=== PATIENT | male | born 1975 | race Caucasian/White ===

== ENCOUNTER 2023-06-28 02:50 | Outpatient (CLI) | payer BC, SELFPAY ==
[2023-06-28 08:40] LABS: Absolute Basophil Count 0.06 10^3/uL (0.0-0.2); Absolute Eosinophil Count 0.34 10^3/uL (0.0-0.7); Absolute Lymphocyte Count 0.43 10^3/uL (1.2-3.4); Absolute Monocyte Count 0.74 10^3/uL (0.1-0.8); Basophils % 0.8; Eosinophils % 4.7; HCT 32.3 % (40.0-50.0); HGB 10.3 g/dL (13.5-17.5); Immature Grans % 2.8; MCH 28.4 pg (27.0-33.0); MCHC 31.9 % (32.0-36.0); MCV 89 fL (80-95); MPV 8.4 fL (8.0-11.0); Monocytes % 10.3; Neutrophils % 75.4; Platelet Count 323 10^3/uL (130-400); RBC 3.63 10^6/uL (4.36-5.78); RDW 19.4 % (11.8-14.1); RDW-SD 63.7 fL; WBC 7.17 10^3/uL (4.4-10.8)
[2023-06-28 09:05] LABS: ALT 39 U/L (16-63); AST 27 U/L (15-37); Albumin 2.9 g/dL (3.4-5.0); Alkaline Phosphatase 173 U/L (46-116); Anion Gap 9.2 mmol/L (3-11); BUN 19 mg/dL (7-18); Bilirubin, Total 0.4 mg/dL (0.2-1.0); CO2 29.8 mmol/L (21.0-32.0); CREATININE 0.9 mg/dL (0.70-1.30); Calcium 9.7 mg/dL (8.5-10.1); Chloride 103 mmol/L (98-107); FREE T4 1.15 ng/dL (0.76-1.46); Glucose 87 mg/dL (74-106); Magnesium 1.9 mg/dL (1.8-2.4); Potassium 3.9 mmol/L (3.5-5.1); Sodium 142 mmol/L (136-145); TSH 2.56 uIU/mL (0.36-3.74); Total Protein 7.1 g/dL (6.4-8.2)
== END 2023-06-28 02:51 | disposition home or self-care (01) ==
PROVIDERS: Visit Provider Internal Medicine Medical Oncology
DX: C34.11 Malignant neoplasm of upper lobe, right bronchus or lung (principal); C79.51 Secondary malignant neoplasm of bone
CPT/HCPCS: 36415; 80053; 83735; 84439; 84443; 85025

== ENCOUNTER 2023-07-24 03:29 | Outpatient (CLI) | payer BC, SELFPAY ==
[2023-07-24 07:56] LABS: Abs Immature Grans 0.43 10^3/uL (0.0-0.06); Absolute Eosinophil Count 0.17 10^3/uL (0.0-0.7); Absolute Lymphocyte Count 0.56 10^3/uL (1.2-3.4); Absolute Monocyte Count 1.48 10^3/uL (0.1-0.8); Absolute Neutrophil Count 9.92 10^3/uL (1.2-6.7); Basophils % 1.3; Eosinophils % 1.3; HGB 9.9 g/dL (13.5-17.5); Immature Grans % 3.4; Lymphocytes % 4.4; MCH 27.8 pg (27.0-33.0); MCHC 31.9 % (32.0-36.0); MCV 87 fL (80-95); MPV 8.2 fL (8.0-11.0); Monocytes % 11.6; Platelet Count 557 10^3/uL (130-400); RBC 3.56 10^6/uL (4.36-5.78); RDW 18.6 % (11.8-14.1); RDW-SD 59.7 fL; WBC 12.72 10^3/uL (4.4-10.8)
[2023-07-24 08:03] LABS: Absolute Basophil Count 0.17 10^3/uL (0.0-0.2)
[2023-07-24 08:14] LABS: ALT 18 U/L (16-63); AST 17 U/L (15-37); Albumin 2.3 g/dL (3.4-5.0); Alkaline Phosphatase 142 U/L (46-116); Anion Gap 9.2 mmol/L (3-11); BUN 6 mg/dL (7-18); Bilirubin, Total 0.4 mg/dL (0.2-1.0); CO2 29.8 mmol/L (21.0-32.0); CREATININE 0.9 mg/dL (0.70-1.30); Calcium 9.5 mg/dL (8.5-10.1); Chloride 100 mmol/L (98-107); FREE T4 1.27 ng/dL (0.76-1.46); Glucose 115 mg/dL (74-106); Magnesium 1.7 mg/dL (1.8-2.4); Potassium 3.6 mmol/L (3.5-5.1); Sodium 139 mmol/L (136-145); TSH 2.15 uIU/mL (0.36-3.74); Total Protein 7.1 g/dL (6.4-8.2)
== END 2023-07-24 03:30 | disposition home or self-care (01) ==
LOC: LBO 03:31
PROVIDERS: Visit Provider Internal Medicine Medical Oncology
DX: C34.11 Malignant neoplasm of upper lobe, right bronchus or lung (principal); C79.51 Secondary malignant neoplasm of bone; Z79.899 Other long term (current) drug therapy
CPT/HCPCS: 36415; 80053; 83735; 84439; 84443; 85025

== ENCOUNTER 2023-08-14 04:57 | Outpatient (CLI) | payer BC, SELFPAY ==
[2023-08-14 10:03] LABS: Abs Immature Grans 0.04 10^3/uL (0.0-0.06); Absolute Basophil Count 0.11 10^3/uL (0.0-0.2); Absolute Eosinophil Count 0.26 10^3/uL (0.0-0.7); Absolute Lymphocyte Count 0.57 10^3/uL (1.2-3.4); Absolute Monocyte Count 0.96 10^3/uL (0.1-0.8); Absolute Neutrophil Count 1.87 10^3/uL (1.2-6.7); Basophils % 2.9; Eosinophils % 6.8; HCT 31.1 % (40.0-50.0); HGB 9.9 g/dL (13.5-17.5); MCH 28.1 pg (27.0-33.0); MCHC 31.8 % (32.0-36.0); MCV 88 fL (80-95); Monocytes % 25.2; Neutrophils % 49.1; Platelet Count 626 10^3/uL (130-400); RBC 3.52 10^6/uL (4.36-5.78); RDW 18.3 % (11.8-14.1); RDW-SD 58.9 fL; WBC 3.81 10^3/uL (4.4-10.8)
[2023-08-14 10:29] LABS: ALT 22 U/L (16-63); AST 23 U/L (15-37); Albumin 2.8 g/dL (3.4-5.0); Alkaline Phosphatase 213 U/L (46-116); Anion Gap 6.5 mmol/L (3-11); BUN 7 mg/dL (7-18); Bilirubin, Total 0.2 mg/dL (0.2-1.0); CO2 31.5 mmol/L (21.0-32.0); Calcium 9.2 mg/dL (8.5-10.1); Chloride 101 mmol/L (98-107); Estimated GFR 92.26 (mL/min/1.73m2); FREE T4 0.96 ng/dL (0.76-1.46); Glucose 94 mg/dL (74-106); Magnesium 2.1 mg/dL (1.8-2.4); Potassium 3.8 mmol/L (3.5-5.1); Sodium 139 mmol/L (136-145); Total Protein 7.5 g/dL (6.4-8.2)
== END 2023-08-14 04:58 | disposition home or self-care (01) ==
LOC: LBO 04:57
PROVIDERS: Visit Provider Internal Medicine Medical Oncology
DX: C34.11 Malignant neoplasm of upper lobe, right bronchus or lung (principal); C79.51 Secondary malignant neoplasm of bone; Z79.899 Other long term (current) drug therapy
CPT/HCPCS: 36415; 80053; 83735; 84439; 84443; 85025

== ENCOUNTER 2023-09-11 05:40 | Outpatient (CLI) | payer BC, SELFPAY ==
[2023-09-11 10:02] LABS: Abs Immature Grans 0.03 10^3/uL (0.0-0.06); Absolute Basophil Count 0.15 10^3/uL (0.0-0.2); Absolute Eosinophil Count 0.59 10^3/uL (0.0-0.7); Absolute Lymphocyte Count 0.62 10^3/uL (1.2-3.4); Absolute Monocyte Count 0.67 10^3/uL (0.1-0.8); Absolute Neutrophil Count 5.63 10^3/uL (1.2-6.7); Eosinophils % 7.7; HCT 31.9 % (40.0-50.0); HGB 10.3 g/dL (13.5-17.5); Immature Grans % 0.4; Lymphocytes % 8.1; MCH 29.2 pg (27.0-33.0); MCHC 32.3 % (32.0-36.0); MCV 90 fL (80-95); MPV 8.8 fL (8.0-11.0); Monocytes % 8.7; Neutrophils % 73.1; Platelet Count 398 10^3/uL (130-400); RBC 3.53 10^6/uL (4.36-5.78); RDW 16.6 % (11.8-14.1); RDW-SD 54.9 fL; WBC 7.69 10^3/uL (4.4-10.8)
[2023-09-11 10:27] LABS: ALT 23 U/L (16-63); AST 30 U/L (15-37); Albumin 3.2 g/dL (3.4-5.0); Alkaline Phosphatase 169 U/L (46-116); Anion Gap 9.7 mmol/L (3-11); BUN 13 mg/dL (7-18); Bilirubin, Total 0.4 mg/dL (0.2-1.0); CO2 27.3 mmol/L (21.0-32.0); CREATININE 0.8 mg/dL (0.70-1.30); Calcium 8.7 mg/dL (8.5-10.1); Chloride 105 mmol/L (98-107); Estimated GFR 108.49 (mL/min/1.73m2); FREE T4 0.93 ng/dL (0.76-1.46); Glucose 104 mg/dL (74-106); Potassium 4.2 mmol/L (3.5-5.1); Sodium 142 mmol/L (136-145); TSH 1.74 uIU/Ml (0.36-3.74); Total Protein 7.1 g/dL (6.4-8.2)
== END 2023-09-11 05:41 | disposition home or self-care (01) ==
LOC: LBO 05:40
PROVIDERS: Visit Provider Internal Medicine Medical Oncology
DX: C34.11 Malignant neoplasm of upper lobe, right bronchus or lung (principal); C79.51 Secondary malignant neoplasm of bone
CPT/HCPCS: 36415; 80053; 83735; 84439; 84443; 85025

== ENCOUNTER 2023-10-02 05:07 | Outpatient (CLI) | payer BC, SELFPAY ==
[2023-10-02 10:07] LABS: Abs Immature Grans 0.02 10^3/uL (0.0-0.06); Absolute Basophil Count 0.08 10^3/uL (0.0-0.2); Absolute Eosinophil Count 0.36 10^3/uL (0.0-0.7); Absolute Lymphocyte Count 0.87 10^3/uL (1.2-3.4); Absolute Monocyte Count 0.48 10^3/uL (0.1-0.8); Absolute Neutrophil Count 4.77 10^3/uL (1.2-6.7); Basophils % 1.2; Eosinophils % 5.5; HCT 35.7 % (40.0-50.0); HGB 11.4 g/dL (13.5-17.5); Immature Grans % 0.3; Lymphocytes % 13.2; MCH 29.4 pg (27.0-33.0); MCHC 31.9 % (32.0-36.0); MCV 92 fL (80-95); MPV 9.1 fL (8.0-11.0); Monocytes % 7.3; Neutrophils % 72.5; Platelet Count 251 10^3/uL (130-400); RBC 3.88 10^6/uL (4.36-5.78); RDW-SD 50.4 fL; WBC 6.58 10^3/uL (4.4-10.8)
[2023-10-02 10:36] LABS: ALT 22 U/L (16-63); AST 26 U/L (15-37); Albumin 3.5 g/dL (3.4-5.0); Alkaline Phosphatase 175 U/L (46-116); Anion Gap 6.5 mmol/L (3-11); BUN 15 mg/dL (7-18); Bilirubin, Total 0.3 mg/dL (0.2-1.0); CO2 29.5 mmol/L (21.0-32.0); CREATININE 0.7 mg/dL (0.70-1.30); Calcium 8.8 mg/dL (8.5-10.1); Chloride 107 mmol/L (98-107); Estimated GFR 112.95 (mL/min/1.73m2); FREE T4 1.04 ng/dL (0.76-1.46); Glucose 104 mg/dL (74-106); Magnesium 1.9 mg/dL (1.8-2.4); Potassium 4.4 mmol/L (3.5-5.1); Sodium 143 mmol/L (136-145); TSH 3.24 uIU/Ml (0.36-3.74); Total Protein 7.3 g/dL (6.4-8.2)
== END 2023-10-02 05:08 | disposition home or self-care (01) ==
LOC: LBO 05:07
PROVIDERS: Visit Provider Internal Medicine Medical Oncology
DX: C34.11 Malignant neoplasm of upper lobe, right bronchus or lung (principal); C79.51 Secondary malignant neoplasm of bone
CPT/HCPCS: 36415; 80053; 83735; 84439; 84443; 85025

== ENCOUNTER 2023-10-23 04:54 | Outpatient (CLI) | payer BC, SELFPAY ==
[2023-10-23 11:13] LABS: Abs Immature Grans 0.02 10^3/uL (0.0-0.06); Absolute Eosinophil Count 0.47 10^3/uL (0.0-0.7); Absolute Lymphocyte Count 0.73 10^3/uL (1.2-3.4); Absolute Monocyte Count 0.41 10^3/uL (0.1-0.8); Absolute Neutrophil Count 4.08 10^3/uL (1.2-6.7); Basophils % 1.7 %; Eosinophils % 8.1 %; HCT 34.8 % (40.0-50.0); Immature Grans % 0.3 %; Lymphocytes % 12.6 %; MCH 29.2 pg (27.0-33.0); MCHC 31.6 % (32.0-36.0); MCV 92 fL (80-95); Monocytes % 7.1 %; Neutrophils % 70.2 %; Platelet Count 291 10^3/uL (130-400); RBC 3.77 10^6/uL (4.36-5.78); RDW 14.6 % (11.8-14.1); RDW-SD 49.3 fL; WBC 5.81 10^3/uL (4.4-10.8)
[2023-10-23 11:46] LABS: ALT 21 U/L (16-63); AST 19 U/L (15-37); Albumin 3.4 g/dL (3.4-5.0); Alkaline Phosphatase 157 U/L (46-116); Anion Gap 6.8 mmol/L (3-11); BUN 15 mg/dL (7-18); Bilirubin, Total 0.3 mg/dL (0.2-1.0); CO2 28.2 mmol/L (21.0-32.0); CREATININE 0.7 mg/dL (0.70-1.30); Calcium 8.7 mg/dL (8.5-10.1); Chloride 108 mmol/L (98-107); Estimated GFR 112.95 (mL/min/1.73m2); FREE T4 0.83 ng/dL (0.76-1.46); Glucose 91 mg/dL (74-106); Potassium 4.2 mmol/L (3.5-5.1); Sodium 143 mmol/L (136-145)
== END 2023-10-23 04:55 | disposition home or self-care (01) ==
LOC: LBO 04:54
PROVIDERS: Visit Provider Internal Medicine Medical Oncology
DX: C34.11 Malignant neoplasm of upper lobe, right bronchus or lung (principal); C79.51 Secondary malignant neoplasm of bone
CPT/HCPCS: 36415; 80053; 83735; 84439; 84443; 85025

== ENCOUNTER 2023-11-14 05:23 | Outpatient (CLI) | payer BC, SELFPAY ==
[2023-11-14 13:03] LABS: Abs Immature Grans 0.03 10^3/uL (0.0-0.06); Absolute Basophil Count 0.09 10^3/uL (0.0-0.2); Absolute Eosinophil Count 0.41 10^3/uL (0.0-0.7); Absolute Lymphocyte Count 0.79 10^3/uL (1.2-3.4); Absolute Monocyte Count 0.43 10^3/uL (0.1-0.8); Absolute Neutrophil Count 7.32 10^3/uL (1.2-6.7); Eosinophils % 4.5 %; HCT 39.6 % (40.0-50.0); HGB 12.8 g/dL (13.5-17.5); Immature Grans % 0.3 %; Lymphocytes % 8.7 %; MCH 29.6 pg (27.0-33.0); MCHC 32.3 % (32.0-36.0); MCV 92 fL (80-95); MPV 9.7 fL (8.0-11.0); Monocytes % 4.7 %; Neutrophils % 80.8 %; Platelet Count 284 10^3/uL (130-400); RBC 4.33 10^6/uL (4.36-5.78); RDW 13.3 % (11.8-14.1); RDW-SD 45.1 fL; WBC 9.07 10^3/uL (4.4-10.8)
[2023-11-14 13:48] LABS: ALT 20 U/L (16-63); AST 20 U/L (15-37); Albumin 3.4 g/dL (3.4-5.0); Alkaline Phosphatase 135 U/L (46-116); Anion Gap 6.1 mmol/L (3-11); BUN 13 mg/dL (7-18); Bilirubin, Total 0.3 mg/dL (0.2-1.0); CO2 27.9 mmol/L (21.0-32.0); CREATININE 0.9 mg/dL (0.70-1.30); Calcium 8.3 mg/dL (8.5-10.1); Chloride 107 mmol/L (98-107); Glucose 102 mg/dL (74-106); Magnesium 2.2 mg/dL (1.8-2.4); Sodium 141 mmol/L (136-145); TSH 1.41 uIU/Ml (0.36-3.74); Total Protein 7.3 g/dL (6.4-8.2)
== END 2023-11-14 05:24 | disposition home or self-care (01) ==
LOC: LBO 05:23
PROVIDERS: Visit Provider Internal Medicine Medical Oncology
DX: C34.11 Malignant neoplasm of upper lobe, right bronchus or lung (principal); C79.51 Secondary malignant neoplasm of bone
CPT/HCPCS: 36415; 80053; 83735; 84439; 84443; 85025

== ENCOUNTER 2023-12-04 02:55 | Outpatient (CLI) | payer BC, SELFPAY ==
[2023-12-04 10:32] LABS: Abs Immature Grans 0.02 10^3/uL (0.0-0.06); Absolute Basophil Count 0.09 10^3/uL (0.0-0.2); Absolute Eosinophil Count 0.43 10^3/uL (0.0-0.7); Absolute Lymphocyte Count 0.82 10^3/uL (1.2-3.4); Absolute Monocyte Count 0.48 10^3/uL (0.1-0.8); Absolute Neutrophil Count 5.75 10^3/uL (1.2-6.7); Basophils % 1.2 %; Eosinophils % 5.7 %; HCT 40.6 % (40.0-50.0); Immature Grans % 0.3 %; Lymphocytes % 10.8 %; MCH 29.1 pg (27.0-33.0); MCV 91 fL (80-95); Monocytes % 6.3 %; Neutrophils % 75.7 %; Platelet Count 273 10^3/uL (130-400); RBC 4.47 10^6/uL (4.36-5.78); RDW 13.1 % (11.8-14.1); WBC 7.59 10^3/uL (4.4-10.8)
[2023-12-04 11:03] LABS: ALT 24 U/L (16-63); AST 22 U/L (15-37); Albumin 3.5 g/dL (3.4-5.0); Alkaline Phosphatase 114 U/L (46-116); Anion Gap 6.7 mmol/L (3-11); BUN 17 mg/dL (7-18); Bilirubin, Total 0.19 mg/dL (0.2-1.0); CO2 29.3 mmol/L (21.0-32.0); CREATININE 0.9 mg/dL (0.70-1.30); Calcium 8.9 mg/dL (8.5-10.1); Chloride 106 mmol/L (98-107); Estimated GFR 104.05 (mL/min/1.73m2); FREE T4 0.84 ng/dL (0.76-1.46); Glucose 98 mg/dL (74-106); Magnesium 1.9 mg/dL (1.8-2.4); Potassium 4.6 mmol/L (3.5-5.1); Sodium 142 mmol/L (136-145); TSH 2.71 uIU/Ml (0.36-3.74); Total Protein 7.3 g/dL (6.4-8.2)
== END 2023-12-04 02:56 | disposition home or self-care (01) ==
LOC: LBO 02:55
PROVIDERS: Visit Provider Internal Medicine Medical Oncology
DX: C79.51 Secondary malignant neoplasm of bone (principal); C34.11 Malignant neoplasm of upper lobe, right bronchus or lung; Z79.899 Other long term (current) drug therapy
CPT/HCPCS: 36415; 80053; 83735; 84439; 84443; 85025

== ENCOUNTER 2024-01-03 01:31 | Outpatient (CLI) | payer BC, SELFPAY ==
[2024-01-03 08:55] LABS: Abs Immature Grans 0.01 10^3/uL (0.0-0.06); Absolute Basophil Count 0.12 10^3/uL (0.0-0.2); Absolute Eosinophil Count 0.57 10^3/uL (0.0-0.7); Absolute Lymphocyte Count 0.89 10^3/uL (1.2-3.4); Absolute Monocyte Count 0.51 10^3/uL (0.1-0.8); Absolute Neutrophil Count 4.23 10^3/uL (1.2-6.7); Basophils % 1.9 %; HCT 41.2 % (40.0-50.0); HGB 13.5 g/dL (13.5-17.5); Immature Grans % 0.2 %; Lymphocytes % 14.1 %; MCH 28.8 pg (27.0-33.0); MCHC 32.8 % (32.0-36.0); MCV 88 fL (80-95); MPV 9.2 fL (8.0-11.0); Monocytes % 8.1 %; Neutrophils % 66.7 %; Platelet Count 288 10^3/uL (130-400); RBC 4.68 10^6/uL (4.36-5.78); RDW 13.2 % (11.8-14.1); RDW-SD 42.5 fL; WBC 6.33 10^3/uL (4.4-10.8)
[2024-01-03 09:17] LABS: ALT 21 U/L (16-63); AST 18 U/L (15-37); Albumin 3.7 g/dL (3.4-5.0); Alkaline Phosphatase 116 U/L (46-116); Anion Gap 6.3 mmol/L (3-11); BUN 18 mg/dL (7-18); CO2 30.7 mmol/L (21.0-32.0); Calcium 8.8 mg/dL (8.5-10.1); Chloride 106 mmol/L (98-107); Estimated GFR 91.69 (mL/min/1.73m2); FREE T4 0.97 ng/dL (0.76-1.46); Glucose 106 mg/dL (74-106); Potassium 4.8 mmol/L (3.5-5.1); Sodium 143 mmol/L (136-145); TSH 4.19 uIU/Ml (0.36-3.74); Total Protein 7.5 g/dL (6.4-8.2)
== END 2024-01-03 01:32 | disposition home or self-care (01) ==
LOC: LBO 01:31
PROVIDERS: Visit Provider Internal Medicine Medical Oncology
DX: C34.11 Malignant neoplasm of upper lobe, right bronchus or lung (principal); C79.51 Secondary malignant neoplasm of bone; Z79.899 Other long term (current) drug therapy
CPT/HCPCS: 36415; 80053; 83735; 84439; 84443; 85025

== ENCOUNTER 2024-01-31 03:17 | Outpatient (CLI) | payer BC, SELFPAY ==
[2024-01-31 09:49] LABS: Abs Immature Grans 0.03 10^3/uL (0.0-0.06); Absolute Basophil Count 0.13 10^3/uL (0.0-0.2); Absolute Eosinophil Count 0.53 10^3/uL (0.0-0.7); Absolute Lymphocyte Count 0.82 10^3/uL (1.2-3.4); Absolute Monocyte Count 0.68 10^3/uL (0.1-0.8); Absolute Neutrophil Count 8.75 10^3/uL (1.2-6.7); Basophils % 1.2 %; Eosinophils % 4.8 %; HCT 42.5 % (40.0-50.0); HGB 13.9 g/dL (13.5-17.5); Immature Grans % 0.3 %; Lymphocytes % 7.5 %; MCH 29.1 pg (27.0-33.0); MCHC 32.7 % (32.0-36.0); MCV 89 fL (80-95); MPV 9.3 fL (8.0-11.0); Monocytes % 6.2 %; Platelet Count 289 10^3/uL (130-400); RBC 4.78 10^6/uL (4.36-5.78); RDW 13.2 % (11.8-14.1); RDW-SD 42.8 fL; WBC 10.94 10^3/uL (4.4-10.8)
[2024-01-31 10:13] LABS: ALT 19 U/L (16-63); AST 18 U/L (15-37); Albumin 3.7 g/dL (3.4-5.0); Alkaline Phosphatase 101 U/L (46-116); Anion Gap 5.1 mmol/L (3-11); BUN 14 mg/dL (7-18); Bilirubin, Total 0.54 mg/dL (0.2-1.0); CO2 29.9 mmol/L (21.0-32.0); CREATININE 1.1 mg/dL (0.70-1.30); Chloride 104 mmol/L (98-107); Estimated GFR 81.78 (mL/min/1.73m2); FREE T4 1.05 ng/dL (0.76-1.46); Glucose 86 mg/dL (74-106); Magnesium 2.2 mg/dL (1.8-2.4); Potassium 4.2 mmol/L (3.5-5.1); Sodium 139 mmol/L (136-145); TSH 3.75 uIU/Ml (0.36-3.74); Total Protein 7.7 g/dL (6.4-8.2)
== END 2024-01-31 03:18 | disposition home or self-care (01) ==
LOC: LBO 03:17
PROVIDERS: Visit Provider Internal Medicine Medical Oncology
DX: C34.11 Malignant neoplasm of upper lobe, right bronchus or lung (principal); C79.51 Secondary malignant neoplasm of bone; Z79.899 Other long term (current) drug therapy
CPT/HCPCS: 36415; 80053; 83735; 84439; 84443; 85025

== ENCOUNTER 2024-04-30 03:00 | Outpatient (CLI) | payer BC, SELFPAY ==
[2024-04-30 13:09] LABS: Abs Immature Grans 0.04 10^3/uL (0.0-0.06); Absolute Basophil Count 0.11 10^3/uL (0.0-0.2); Absolute Eosinophil Count 0.34 10^3/uL (0.0-0.7); Absolute Lymphocyte Count 0.79 10^3/uL (1.2-3.4); Absolute Monocyte Count 0.51 10^3/uL (0.1-0.8); Absolute Neutrophil Count 7.36 10^3/uL (1.2-6.7); Basophils % 1.2 %; Eosinophils % 3.7 %; HCT 37.1 % (40.0-50.0); HGB 12.3 g/dL (13.5-17.5); Immature Grans % 0.4 %; Lymphocytes % 8.6 %; MCH 29.9 pg (27.0-33.0); MCHC 33.2 % (32.0-36.0); MCV 90 fL (80-95); MPV 8.8 fL (8.0-11.0); Monocytes % 5.6 %; Neutrophils % 80.5 %; Platelet Count 333 10^3/uL (130-400); RBC 4.11 10^6/uL (4.36-5.78); RDW 12.9 % (11.8-14.1); RDW-SD 42.7 fL; WBC 9.15 10^3/uL (4.4-10.8)
[2024-04-30 13:59] LABS: ALT 18 U/L (16-63); AST 16 U/L (15-37); Albumin 3.1 g/dL (3.4-5.0); Alkaline Phosphatase 97 U/L (46-116); Anion Gap 5.1 mmol/L (3-11); BUN 11 mg/dL (7-18); Bilirubin, Total 0.27 mg/dL (0.2-1.0); CO2 30.9 mmol/L (21.0-32.0); Calcium 8.8 mg/dL (8.5-10.1); Chloride 106 mmol/L (98-107); Estimated GFR 91.69 (mL/min/1.73m2); FREE T4 0.98 ng/dL (0.76-1.46); Glucose 95 mg/dL (74-106); Magnesium 2.2 mg/dL (1.8-2.4); Potassium 4.1 mmol/L (3.5-5.1); Sodium 142 mmol/L (136-145); TSH 4.75 uIU/mL (0.36-3.74); Total Protein 7.3 g/dL (6.4-8.2)
== END 2024-04-30 03:01 | disposition home or self-care (01) ==
LOC: LBO 03:00
PROVIDERS: Visit Provider Internal Medicine Medical Oncology
DX: C34.11 Malignant neoplasm of upper lobe, right bronchus or lung (principal); C79.51 Secondary malignant neoplasm of bone; Z79.899 Other long term (current) drug therapy
CPT/HCPCS: 36415; 80053; 83735; 84439; 84443; 85025

== ENCOUNTER 2024-05-21 01:59 | Outpatient (CLI) | payer BC, SELFPAY ==
[2024-05-21 10:30] LABS: Abs Immature Grans 0.04 10^3/uL (0.0-0.06); Absolute Basophil Count 0.11 10^3/uL (0.0-0.2); Absolute Eosinophil Count 0.32 10^3/uL (0.0-0.7); Absolute Lymphocyte Count 0.72 10^3/uL (1.2-3.4); Absolute Monocyte Count 0.71 10^3/uL (0.1-0.8); Absolute Neutrophil Count 6.68 10^3/uL (1.2-6.7); Basophils % 1.3 %; Eosinophils % 3.7 %; HCT 36.6 % (40.0-50.0); HGB 11.7 g/dL (13.5-17.5); Immature Grans % 0.5 %; Lymphocytes % 8.4 %; MCH 29.2 pg (27.0-33.0); MCV 91 fL (80-95); MPV 8.8 fL (8.0-11.0); Monocytes % 8.3 %; Neutrophils % 77.8 %; Platelet Count 296 10^3/uL (130-400); RBC 4.01 10^6/uL (4.36-5.78); RDW 13.4 % (11.8-14.1); RDW-SD 45.1 fL; WBC 8.58 10^3/uL (4.4-10.8)
[2024-05-21 11:05] LABS: ALT 15 U/L (16-63); AST 20 U/L (15-37); Albumin 3.5 g/dL (3.4-5.0); Alkaline Phosphatase 101 U/L (46-116); Anion Gap 5.8 mmol/L (3-11); BUN 19 mg/dL (7-18); Bilirubin, Total 0.36 mg/dL (0.2-1.0); CO2 32.2 mmol/L (21.0-32.0); Calcium 9.6 mg/dL (8.5-10.1); Chloride 105 mmol/L (98-107); Estimated GFR 91.69 (mL/min/1.73m2); FREE T4 0.96 ng/dL (0.76-1.46); Glucose 75 mg/dL (74-106); Magnesium 2.3 mg/dL (1.8-2.4); Potassium 4.3 mmol/L (3.5-5.1); Sodium 143 mmol/L (136-145); Total Protein 7.8 g/dL (6.4-8.2)
== END 2024-05-21 02:00 | disposition home or self-care (01) ==
LOC: LBO 02:00
PROVIDERS: Visit Provider Internal Medicine Medical Oncology
DX: C34.11 Malignant neoplasm of upper lobe, right bronchus or lung (principal); C79.51 Secondary malignant neoplasm of bone; Z79.899 Other long term (current) drug therapy
CPT/HCPCS: 36415; 80053; 83735; 84439; 84443; 85025

== ENCOUNTER 2024-05-21 12:22 | Emergency (ER) | payer BC, SELFPAY ==
[2024-05-21] VITALS (21 sets, daily range): BP systolic 112–146; BP diastolic 74–91; PULSE 69–95; RESP 9–18; TEMP 36.3–36.4; O2SAT 93–96
--- NOTE | 2024-05-21 12:15 | RT.EKG_ITS ---
APPROVED REPORT Exam: Resting ECG Reason for Exam: chest pain Patient Location: E HR:73 bpm ECG Measurements Heart Rate 73 AXIS WA 162 P 56 QRSd 99 QRS 64 QT 412 T 62 QTc 455 Conclusion Sinus rhythm...normal P axis, V-rate 60- 99 Narrow complex normal sinus rhythm at a rate of 73. Normal axis. Intervals within normal limits. N o ST segment abnormalities. T wave flattening in aVL. No prior for comparison. No acute injury charly rodriguez
--- NOTE | 2024-05-21 13:36 | ED.GENADUL_ITS ---
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 gabapentin 300 mg capsule 300 mg PO DAILY folic acid 1 mg tablet 1 mg PO DAILY Patient Comments: TAKE 1 TABLET BY MOUTH ONCE DAILY Discharge Instructions Additional Instructions: Please call your oncology team first thing in the morning to schedule follow-up appointment and to discuss today's emergency department visit. Continue take your medications as prescribed. Return to emergency care if you develop new significant chest pains, difficulty breathing, feel like you are going to pass out, or if you are very worried and need to be rechecked again immediately HPI General Date/Time Provider Initiated Documentation: 05/21/24 12:43 . HPI Narrative: Vikas is a 48year old male who presents to the emergency department today for evaluation of sternal chest pressure. He reports symptoms started approximately 3 to 5 days ago, has been constant, described as pressure in the center of the chest. Is worsened with exercise, he says that the EKG was worse. He denies associated fever/chills, dizziness, congestion, sore throat, change in baseline cough, palpitations, diaphoresis, nausea/vomiting, abdominal pain, change in bowel or bladder function. He does admit to mildly increased shortness of uche th from baseline and heartburn. Pain is not positional, has not disappeared at any time since onset. He has not had pain like this similarly. He is currently being treated for lung cancer with immunotherapy. Denies history of recent surgery/immobility, calf redness/swelling/tenderness, hormone use, blood clot history. No strong family history of cardiac disease or connective tissue disorders. He does smoke for 5 cigarettes daily. Denies history of diabetes, heart disease, hypertension, hyperlipidemia. Past medical history is significant for lung cancer, chronic methadone use. Physical exam reassuring. Vikas is alert and oriented, no acute distress. Easy work of breathing, lung sounds clear bilaterally. Normal heart sounds. No JVD or pedal edema. No calf redness/swelling/tenderness with palpation. D/dx includes but is not limited to: Pneumonia, pneumothorax, pulmonary embolism, ACS, cardiac arrhythmia, GERD, esophageal spasm. Heart score 2, indicating low risk of Mace. Low suspicion for pericarditis based on history and presentation. I independently interpreted the following tests: EKG reassuring, normal sinus rhythm with rate 83, no changes consistent with acute ischemia; normal intervals. CBC notable only for mild anemia, CMP, BNP, and troponin <4 all reassuring. D-dimer elevated at 964. CTA chest ordered; no pulmonary embolus or infiltrates noted. Patient does have significant hilar and mediastinal adenopathy, right upper lobe mass, and interlobular septal thickening in the right upper and lower lobes as well as peribronchial thickening. I discussed findings with Vikas, who reports that his cancer has spread and this is known. While in the emergency department, Vikas received famotidine and Mylanta/lidocaine for heartburn symptoms. Says he is feeling unchanged. Overall workup today very reassuring, unclear etiology of chest pressure, possibly related to progression of lung cancer. Recommend close follow-up with oncology, he says he will call tomorrow. Reviewed discharge instructions with patient, including symptomatic management and red flags indicating need for return to emergency care. He voices agreement with plan of care. Related Data Home Medications ?Medication ?Instructions ?Recorded ?Confirmed folic acid 1 mg tablet 1 mg PO DAILY 05/21/24 05/21/24 gabapentin 300 mg capsule 300 mg PO DAILY 05/21/24 05/21/24 methadone 10 mg tablet 20 mg PO 3XD 05/21/24 05/21/24 omeprazole 40 mg capsule,delayed 40 mg PO DAILY 05/21/24 05/21/24 release Allergies Allergy/AdvReac Type Severity Reaction Status Date / Time No Known Allergies Allergy Unverified 05/21/24 12:33 General Stated Complaint: Chest Pain STEPHANE: 3 Review of Systems Narrative: see HPI Exam Const General: cooperative, healthy appearing, comfortable, no acute distress, well developed and well groomed Nutritional Appearance: average body habitus Orientation: alert and oriented x3 HENMT Head: normal to inspection Neck Neck: normal visual inspection, no lymphadenopathy and no JVD Resp Effort & Inspection: normal respiratory effort and able to speak in complete sentences Auscultation: clear to auscultation bilaterally Cardio Jugular venous pressure: no JVD Rate: regular rate Rhythm: regular rhythm GI Inspection: normal to inspection and non-distended Palpation: soft, not rigid and nontender Extrem General: no pedal edema Course Vital Signs Vital signs: Vital Signs Temperature 36.3 C L 05/21/24 12:32 Pulse 77 05/21/24 12:32 Respiratory Rate 15 05/21/24 12:32 Blood Pressure 146/91 H 05/21/24 12:32 Pulse Oximetry 96 05/21/24 12:32 Temperature 36.3 C L 05/21/24 12:32 Pulse 77 05/21/24 12:32 Respiratory Rate 12 05/21/24 12:45 Respiratory Effort Normal, Non-Labored 05/21/24 12:45 Respiratory Depth Normal 05/21/24 12:45 Respiratory Pattern Normal 05/21/24 12:45 Blood Pressure 146/91 H 05/21/24 12:32 Blood Pressure Position Sitting 05/21/24 12:32 Pulse Oximetry 96 05/21/24 12:32 Oxygen Delivery Method Room Air 05/21/24 12:32 Oxygen Flow Rate 0 05/21/24 12:32 Medical Decision Making Imaging Data Radiologic Study: Radiologist's impression: Exam(s) CT CHEST PE CTA EXAM: CT CHEST PE CTA CLINICAL HISTORY: sternal CP, lung CA. TECHNIQUE: Imaging Protocol: Axial CT angiography was performed with multi- slice acquisition and multi-planar reconstructions as well as axial, coronal and sagittal MIP reconstructions. Computer aided detection (CAD) was utilized. CONTRAST MATERIAL: Intravenous: Omnipaque 350 Contrast volume:75 ml COMPARISON: No exams were available for comparison FINDINGS: Pulmonary Arteries: No evidence of filling defect to suggest pulmonary emboli. Mediastinum and Marlene: Bilateral hilar as well as mediastinal adenopathy. Pulmonary parenchyma: Evaluation somewhat limited due to expiratory changes. 2.4 centimeter maximal dimension mass in the medial right lung apex. Peribronchial thickening and increased interlobular septal thickening in the right upper and lower lobes. Findings could represent asymmetric pulmonary edema versus lymphangitic spread of tumor. Pleura: No effusion or pneumothorax. Pleural thickening adjacent to right apical mass. Mild posterior pleural thickening as well in the right upper lobe near the fissure. Heart: The heart is not dilated. No coronary artery calcifications are seen. Aorta: Thoracic aorta non-dilated. No dissection. Upper abdomen: Bilateral adrenal nodules, right greater than left. Bones: Old right posterior rib fracture. No destructive bony lesions identified. Tubes, Catheters, and Lines: None Soft tissues: Unremarkable. IMPRESSION: No evidence of pulmonary embolism. Right upper lobe mass. Significant hilar and mediastinal adenopathy. Interlobular septal thickening in the right upper and lower lobes as well as peribronchial thickening could indicate asymmetric pulmonary edema or lymphangitis spread of tumor. Quality:SDOH Health Related Social Needs: No Data to Display PFSH All Active Problems (Updated 05/21/24 @ 15:39 by Irina Renee) Chest pressure (Acute) Social History Smoking/Tobacco Use Status: Current every day Tobacco Type: cigarettes Smoking risk assessment performed?: Yes Alcohol Intake: former Substance use type: does not use Housing: apartment
[2024-05-21 13:53] LABS: Abs Immature Grans 0.02 10^3/uL (0.0-0.06); Absolute Eosinophil Count 0.34 10^3/uL (0.0-0.7); Absolute Lymphocyte Count 0.64 10^3/uL (1.2-3.4); Absolute Monocyte Count 0.52 10^3/uL (0.1-0.8); Absolute Neutrophil Count 5.32 10^3/uL (1.2-6.7); Basophils % 1.4 %; Eosinophils % 4.9 %; HCT 35.5 % (40.0-50.0); HGB 11.5 g/dL (13.5-17.5); Immature Grans % 0.3 %; Lymphocytes % 9.2 %; MCH 29.5 pg (27.0-33.0); MCHC 32.4 % (32.0-36.0); MCV 91 fL (80-95); Monocytes % 7.5 %; Neutrophils % 76.7 %; Platelet Count 284 10^3/uL (130-400); RDW 13.4 % (11.8-14.1); RDW-SD 44.5 fL; WBC 6.94 10^3/uL (4.4-10.8)
[2024-05-21] MEDS: Famotidine 20 MG/2 ML VIAL IVP (13:59)
[2024-05-21 14:14] LABS: ALT 18 U/L (16-63); AST 20 U/L (15-37); Albumin 3.2 g/dL (3.4-5.0); Alkaline Phosphatase 91 U/L (46-116); Anion Gap 5.3 mmol/L (3-11); BUN 15 mg/dL (7-18); Bilirubin, Total 0.35 mg/dL (0.2-1.0); CO2 31.7 mmol/L (21.0-32.0); Calcium 9.3 mg/dL (8.5-10.1); Chloride 104 mmol/L (98-107); Estimated GFR 91.69 (mL/min/1.73m2); Glucose 77 mg/dL (74-106); Magnesium 2.1 mg/dL (1.8-2.4); NT-proBNP 27 pg/mL (<300); Potassium 4.3 mmol/L (3.5-5.1); Sodium 141 mmol/L (136-145); Total Protein 7.3 g/dL (6.4-8.2)
[2024-05-21 14:18] LABS: Troponin I < 4 ng/L (<or=76)
[2024-05-21 14:27] LABS: D-Dimer 964 ng/mlFEU (<500)
--- NOTE | 2024-05-21 14:30 | DI.CT_ITS ---
Exam(s) CT CHEST PE CTA EXAM: CT CHEST PE CTA CLINICAL HISTORY: sternal CP, lung CA. TECHNIQUE: Imaging Protocol: Axial CT angiography was performed with multi-slice acquisition and mu lti-planar reconstructions as well as axial, coronal and sagittal MIP reconstructions. Computer aided detection (CAD) was utilized. CONTRAST MATERIAL: Intravenous: Omnipaque 350 Contrast volume:75 ml COMPARISON: No exams were available for comparison FINDINGS: Pulmonary Arteries: No evidence of filling defect to suggest pulmonary emboli. Mediastinum and Marlene: Bilateral hilar as well as mediastinal adenopathy. Pulmonary parenchyma: Evaluation somewhat limited due to expiratory changes. 2.4 centimeter maximal dimension mass in the medial right lung apex. Peribronchial thickening and increased interlobular se ptal thickening in the right upper and lower lobes. Findings could represent asymmetric pulmonary ed patrizia versus lymphangitic spread of tumor. Pleura: No effusion or pneumothorax. Pleural thickening adjacent to right apical mass. Mild folder and notcher ior pleural thickening as well in the right upper lobe near the fissure. Heart: The heart is not dilated. No coronary artery calcifications are seen. Aorta: Thoracic aorta non-dilated. No dissection. Upper abdomen: Bilateral adrenal nodules, right greater than left. Bones: Old right posterior rib fracture. No destructive bony lesions identified. Tubes, Catheters, and Lines: None Soft tissues: Unremarkable. IMPRESSION: No evidence of pulmonary embolism. Right upper lobe mass. Significant hilar and mediastinal adenopathy. Interlobular septal thickening in the right upper and lower lobes as well as peribronchial thickening could indicate asymmetric pulmonary edema or lymphangitis spread of tumor. RADIATION DOSE DELIVERED: Total DLP DATA REPOSITORY: All CT scans at this facility are submitted to the National Radiology Data Registry (NRDR) Dose Index Registry (DIR) with the [employer] ([employer]). RADIATION OPTIMIZATION: All CT scans at this facility use at least one of these dose optimization te chniques: automated exposure control; mA and/or kV adjustment per patient size (includes targeted exa ms where dose is matched to clinical indication); or iterative reconstruction.
[2024-05-21] MEDS: Omnipaque 350 MG/ML 100 ML BTL IJ (14:43)
[2024-05-21] MEDS: Normal Saline - Diluent 50 ML VIAL IJ (14:44)
--- NOTE | 2024-05-23 10:28 | NUR.NOTE ---
Access chart to reconcile EKG orders with EKGs in [facility]. Duplicate order cancelled. Nursing Note:
== END 2024-05-21 16:00 | disposition home or self-care (01) ==
PROVIDERS: Emergency Provider Nurse Practitioner Family
DX: R07.89 Other chest pain (principal); F17.210 Nicotine dependence, cigarettes, uncomplicated
CPT/HCPCS: 36415; 71275; 80053; 93005; 96374; 99285; 83735; 83880; 84484; 85025; 85379; 93010; 99284; J3490

== ENCOUNTER 2024-06-24 04:22 | Outpatient (CLI) | payer BC, SELFPAY ==
[2024-06-24 11:03] LABS: Abs Immature Grans 0.04 10^3/uL (0.0-0.06); Absolute Basophil Count 0.11 10^3/uL (0.0-0.2); Absolute Eosinophil Count 0.42 10^3/uL (0.0-0.7); Absolute Lymphocyte Count 0.67 10^3/uL (1.2-3.4); Absolute Monocyte Count 0.53 10^3/uL (0.1-0.8); Absolute Neutrophil Count 6.76 10^3/uL (1.2-6.7); Basophils % 1.3 %; Eosinophils % 4.9 %; HCT 34.7 % (40.0-50.0); HGB 11.5 g/dL (13.5-17.5); Immature Grans % 0.5 %; Lymphocytes % 7.9 %; MCH 29.2 pg (27.0-33.0); MCHC 33.1 % (32.0-36.0); MCV 88 fL (80-95); MPV 8.8 fL (8.0-11.0); Monocytes % 6.2 %; Neutrophils % 79.2 %; Platelet Count 296 10^3/uL (130-400); RBC 3.94 10^6/uL (4.36-5.78); RDW-SD 45.5 fL; WBC 8.53 10^3/uL (4.4-10.8)
[2024-06-24 11:31] LABS: ALT 18 U/L (16-63); AST 24 U/L (15-37); Albumin 3.4 g/dL (3.4-5.0); Alkaline Phosphatase 102 U/L (46-116); Anion Gap 5.2 mmol/L (3-11); BUN 16 mg/dL (7-18); Bilirubin, Total 0.53 mg/dL (0.2-1.0); CO2 31.8 mmol/L (21.0-32.0); CREATININE 1.1 mg/dL (0.70-1.30); Calcium 9.6 mg/dL (8.5-10.1); Chloride 105 mmol/L (98-107); Estimated GFR 81.78 (mL/min/1.73m2); FREE T4 1.06 ng/dL (0.76-1.46); Glucose 119 mg/dL (74-106); Potassium 4.6 mmol/L (3.5-5.1); Sodium 142 mmol/L (136-145); TSH 3.41 uIU/mL (0.36-3.74); Total Protein 7.2 g/dL (6.4-8.2)
== END 2024-06-24 04:23 | disposition home or self-care (01) ==
LOC: LBO 04:22
PROVIDERS: Visit Provider Internal Medicine Medical Oncology
DX: C34.11 Malignant neoplasm of upper lobe, right bronchus or lung (principal); C79.51 Secondary malignant neoplasm of bone; Z79.899 Other long term (current) drug therapy
CPT/HCPCS: 36415; 80053; 83735; 84439; 84443; 85025

== ENCOUNTER 2024-07-23 03:23 | Outpatient (CLI) | payer SELFPAY ==
[2024-07-23 12:49] LABS: Abs Immature Grans 0.01 10^3/uL (0.0-0.06); Absolute Basophil Count 0.09 10^3/uL (0.0-0.2); Absolute Eosinophil Count 0.17 10^3/uL (0.0-0.7); Absolute Lymphocyte Count 0.51 10^3/uL (1.2-3.4); Absolute Monocyte Count 0.49 10^3/uL (0.1-0.8); Absolute Neutrophil Count 3.29 10^3/uL (1.2-6.7); Eosinophils % 3.7 %; HCT 36.9 % (40.0-50.0); HGB 11.9 g/dL (13.5-17.5); Immature Grans % 0.2 %; Lymphocytes % 11.2 %; MCH 29.5 pg (27.0-33.0); MCHC 32.2 % (32.0-36.0); MCV 92 fL (80-95); MPV 8.9 fL (8.0-11.0); Monocytes % 10.7 %; Neutrophils % 72.2 %; Platelet Count 384 10^3/uL (130-400); RBC 4.03 10^6/uL (4.36-5.78); RDW 15.7 % (11.8-14.1); RDW-SD 52.3 fL; WBC 4.56 10^3/uL (4.4-10.8)
[2024-07-23 13:14] LABS: ALT 24 U/L (16-63); AST 20 U/L (15-37); Albumin 3.4 g/dL (3.4-5.0); Alkaline Phosphatase 98 U/L (46-116); Anion Gap 1.1 mmol/L (3-11); BUN 14 mg/dL (7-18); Bilirubin, Total 0.32 mg/dL (0.2-1.0); CO2 34.9 mmol/L (21.0-32.0); CREATININE 1.3 mg/dL (0.70-1.30); Calcium 9.5 mg/dL (8.5-10.1); Chloride 105 mmol/L (98-107); Estimated GFR 66.93 (mL/min/1.73m2); FREE T4 1.12 ng/dL (0.76-1.46); Glucose 92 mg/dL (74-106); Magnesium 2.3 mg/dL (1.8-2.4); Potassium 4.1 mmol/L (3.5-5.1); Sodium 141 mmol/L (136-145); TSH 1.99 uIU/mL (0.36-3.74); Total Protein 7.5 g/dL (6.4-8.2)
== END 2024-07-23 03:24 | disposition home or self-care (01) ==
PROVIDERS: Visit Provider Nurse Practitioner Family
DX: Z79.899 Other long term (current) drug therapy (principal); C34.11 Malignant neoplasm of upper lobe, right bronchus or lung; C79.51 Secondary malignant neoplasm of bone
CPT/HCPCS: 36415; 80053; 83735; 84439; 84443; 85025

== ENCOUNTER 2024-08-12 02:13 | Outpatient (CLI) | payer SELFPAY ==
[2024-08-12 09:49] LABS: Abs Immature Grans 0.01 10^3/uL (0.0-0.06); Absolute Basophil Count 0.04 10^3/uL (0.0-0.2); Absolute Eosinophil Count 0.31 10^3/uL (0.0-0.7); Absolute Lymphocyte Count 0.77 10^3/uL (1.2-3.4); Absolute Monocyte Count 0.66 10^3/uL (0.1-0.8); Absolute Neutrophil Count 1.86 10^3/uL (1.2-6.7); Basophils % 1.1 %; Eosinophils % 8.5 %; HCT 36.1 % (40.0-50.0); HGB 11.5 g/dL (13.5-17.5); Immature Grans % 0.3 %; Lymphocytes % 21.1 %; MCH 29.9 pg (27.0-33.0); MCHC 31.9 % (32.0-36.0); MCV 94 fL (80-95); MPV 8.5 fL (8.0-11.0); Monocytes % 18.1 %; Neutrophils % 50.9 %; Platelet Count 356 10^3/uL (130-400); RBC 3.85 10^6/uL (4.36-5.78); RDW-SD 54.9 fL; WBC 3.65 10^3/uL (4.4-10.8)
[2024-08-12 10:14] LABS: ALT 26 U/L (16-63); AST 23 U/L (15-37); Albumin 3.5 g/dL (3.4-5.0); Alkaline Phosphatase 90 U/L (46-116); Anion Gap 7.4 mmol/L (3-11); BUN 14 mg/dL (7-18); Bilirubin, Total 0.29 mg/dL (0.2-1.0); CO2 30.6 mmol/L (21.0-32.0); Calcium 9.7 mg/dL (8.5-10.1); Chloride 104 mmol/L (98-107); Estimated GFR 91.69 (mL/min/1.73m2); Glucose 84 mg/dL (74-106); Potassium 4.7 mmol/L (3.5-5.1); Sodium 142 mmol/L (136-145); TSH 2.07 uIU/mL (0.36-3.74); Total Protein 7.7 g/dL (6.4-8.2)
== END 2024-08-12 02:14 | disposition home or self-care (01) ==
PROVIDERS: Visit Provider Nurse Practitioner Family
DX: C34.11 Malignant neoplasm of upper lobe, right bronchus or lung (principal); C79.51 Secondary malignant neoplasm of bone; Z79.899 Other long term (current) drug therapy
CPT/HCPCS: 36415; 80053; 83735; 84439; 84443; 85025